=== PATIENT | male | born 1955 | race Caucasian/White ===

== ENCOUNTER 2017-01-03 15:00 | Emergency (ER) ==
[2017-01-03 15:15] VITALS: BP 110/75; TEMP 97.9; BMI 31.4
[2017-01-03 15:29] LABS: BILIRUBIN,URINE Negative (NEGATIVE); KETONES,URINE Negative (NEGATIVE); LEUKOCYTE ESTERASE ,URINE Negative (NEGATIVE); NITRITE,URINE Negative (NEGATIVE); PH,URINE 5.5 (5-9); PROTEIN,URINE Negative (NEGATIVE); URINE, BLOOD Negative (NEGATIVE)
[2017-01-03 15:33] LABS: ADD URINE MICROSCOPIC NO
[2017-01-03 15:34] LABS: BASOPHILS # (AUTO) 0.1 K/uL (0-0.2); BASOPHILS % (AUTO) 0.7 % (0.0-3.0); EOSINOPHILS # (AUTO) 0.4 K/ul (0.0-0.7); EOSINOPHILS % (AUTO) 3.7 % (0.0-7.0); HEMATOCRIT 37.3 % (42.0-52.0); HEMOGLOBIN 13.1 g/dl (14.0-18.0); IMMATURE GRANULOCYTE % (AUTO) 0.7 % (0.0-5.0); LYMPHOCYTES # (AUTO) 1.8 K/uL (0.60-3.4); LYMPHOCYTES % (AUTO) 15.7 (10.0-50.0); MEAN CORPUSCULAR HEMOGLOBIN 28.9 pg (27.0-31.0); MEAN CORPUSCULAR HGB CONC 35.1 (31.8-35.4); MEAN CORPUSCULAR VOLUME 82.3 fl (80.0-94.0); MONOCYTES # (AUTO) 0.6 K/uL (0.4-2.0); MONOCYTES % (AUTO) 5.7 (0-10); NEUTROPHILS # (AUTO) 8.2 K/ul (2.0-6.9); NEUTROPHILS % (AUTO) 73.5; PLATELET COUNT 250 10^3/uL (140-440); RED BLOOD COUNT 4.53 10^6/ul (4.70-6.10); WHITE BLOOD COUNT 11.21 K/ul (4.2-10.2)
--- NOTE | 2017-01-03 15:34 | DI ---
EXAM: Chest two views HISTORY: Cough COMPARISON: None TECHNIQUE: Two views of the chest were performed FINDINGS: The lungs are clear. There is no pleural effusion or pneumothorax. The heart is normal in size. The mediastinal contour is normal. There are no acute abnormalities of the bones. IMPRESSION: No acute cardiopulmonary process.
[2017-01-03 15:53] LABS: ALBUMIN 3.5 g/dL (3.4-5.0); ALBUMIN/GLOBULIN RATIO 1.21; ANION GAP 15.1; BILIRUBIN,TOTAL 0.59 mg/dL (0.00-1.20); BUN/CREATININE RATIO 12.38; CALCIUM 8.7 mg/dL (8.2-10.2); CREATININE 1.13 mg/dL (0.60-1.10); POTASSIUM 4.1 mmol/L (3.5-5.1); TOTAL PROTEIN 6.4 g/dL (5.8-8.1)
--- NOTE | 2017-01-03 16:01 | ED.PDOC ---
General ED Provider: Dr. MARCELLO RING Chief Complaint: Diabetes Stated Complaint: diabetes Time Seen by Physician: 15:00 (has cough, congestion and elevated out pt blood sugar) Mode of Arrival: Walk-In Information Source: Patient Exam Limitations: No limitations Nursing and Triage Documentation Reviewed and Agree: Yes (visiting from out of town seen with jeremiah at all times ) Endocrine Complaint Exam - Diabetic Complication Complaint/Exam Onset/Duration: 2 days Symptoms Are: Still present Timing: Constant Initial Severity: Mild Current Severity: Mild Aggravating: Reports: None Alleviating: Reports: None Associated Signs and Symptoms: Denies: Decreased LOC, Polydipsia, Polyuria, Polyphagia, Weight loss, Abdominal pain, Nausea, Vomiting, Fever, Diaphoresis, Fruity breath Related History: Reports: Similar episode Cardiac Risk Factors: Reports: DM CVA Risk Factors: Reports: DM Serious Bacterial Infection Risk Factors: Reports: None Related Surgical History: Reports: None Acetone on Breath: No Dry Mucous Membranes: No Glascow Coma Scale (see protocol): 15 Meningeal Signs: No Focal Weakness: None Focal Sensory Loss: None Gait: Normal Nystagmus Present: No Gag Reflex Present: No Differential Diagnoses: Pneumonia Review of Systems - Review Of Systems Constitutional: Reports: No symptoms Eyes: Reports: No symptoms Ears, Nose, Mouth, Throat: Reports: No symptoms Respiratory: Reports: Cough Cardiac: Reports: No symptoms GI: Reports: No symptoms : Reports: No symptoms Musculoskeletal: Reports: No symptoms Skin: Reports: No symptoms Neurological: Reports: No symptoms Endocrine: Reports: No symptoms Hematologic/Lymphatic: Reports: No symptoms All Other Systems: Reviewed and Negative Past Medical History - Past Medical History Previously Healthy: No Endocrine: Reports: DM 2 Cardiovascular: Reports: None Respiratory: Reports: None Hematological: Reports: None Gastrointestinal: Reports: None Genitourinary: Reports: None Neuro/Psych: Reports: None Musculoskeletal: Reports: None Cancer: Reports: None - Surgical History General Surgical History: Reports: None - Family History Family History: Reports: None - Social History Smoking Status: Never smoker Hx Substance Use: No Alcohol Screening: None Physical Exam - Physical Exam Appearance: Well-appearing, No pain distress, Well-nourished Eyes: LENKA, EOMI, Conjunctiva clear ENT: Ears normal, Nose normal, Oropharynx normal Respiratory: Airway patent, Breath sounds clear, Breath sounds equal, Respirations nonlabored Cardiovascular: RRR, Pulses normal, No rub, No murmur GI/: Soft, Nontender, No masses, Bowel sounds normal, No Organomegaly Musculoskeletal: Normal strength, ROM intact, No edema, No calf tenderness Skin: Warm, Dry, Normal color Neurological: Sensation intact, Motor intact, Reflexes intact, Cranial nerves intact, Alert, Oriented Psychiatric: Affect appropriate, Mood appropriate Critical Care Note - Critical Care Note Total Time (mins): 0 Course - Course Hematology/Chemistry: 01/03/17 15:30 01/03/17 15:30 Orders, Labs, Meds: Lab Review 01/03/17 01/03/17 15:20 15:30 WBC 11.21 H RBC 4.53 L Hgb 13.1 L Hct 37.3 L MCV 82.3 MCH 28.9 MCHC 35.1 RDW Coeff of Ed 13.1 Plt Count 250 Immature Gran % (Auto) 0.7 Neut % (Auto) 73.5 Lymph % (Auto) 15.7 Benzie % (Auto) 5.7 Eos % (Auto) 3.7 Baso % (Auto) 0.7 Immature Gran # (Auto) 0.1 Neut # 8.2 H Lymph # 1.8 Benzie # 0.6 Eos # 0.4 Baso # 0.1 Sodium 136 Potassium 4.1 Chloride 102 Carbon Dioxide 23 Anion Gap 15.1 BUN 14 Creatinine 1.13 H Estimated GFR (MDRD) 66.00 BUN/Creatinine Ratio 12.38 Glucose 288 H Calcium 8.7 Total Bilirubin 0.59 AST 14 L ALT 21 Alkaline Phosphatase 91 Total Protein 6.4 Albumin 3.5 Globulin 2.9 Albumin/Globulin Ratio 1.21 Urine Color Yellow Urine Clarity Clear Urine pH 5.5 Ur Specific Arthur 1.015 Urine Protein Negative Urine Glucose (UA) 2+ Urine Ketones Negative Urine Blood Negative Urine Nitrite Negative Urine Bilirubin Negative Urine Urobilinogen 0.2 Ur Leukocyte Esterase Negative Orders Category Date Time Status CBC W/ AUTO DIFF Stat LAB 01/03/17 15:30 Completed COMPREHENSIVE METABOLIC PANEL Stat LAB 01/03/17 15:30 Completed MOLECULAR GROUP A STREP Stat LAB 01/03/17 15:20 Results STREP SCREEN Stat LAB 01/03/17 15:20 Results URINALYSIS C & S IF INDICATED Stat LAB 01/03/17 15:20 Completed CHEST, 2 VIEWS PA & LAT Stat RADS 01/03/17 15:15 Completed Vital Signs: Temp Pulse Resp BP Pulse Ox 01/03/17 15:01 97.9 F 77 20 110/75 96 Departure - Departure Time of Disposition: 16:02 Disposition: HOME SELF-CARE Discharge Problem: Upper respiratory infection Qualifiers: URI type: unspecified URI Qualifier Code: (J06.9) Acute upper respiratory infection, unspecified Anemia Qualifiers: Iron deficiency anemia type: unspecified iron deficiency Instructions: Upper Respiratory Infection (ED) Condition: Fair Pt referred to PMD for follow-up: No Additional Instructions: you diabetes is not well controlled see your doctor rosalina. you are also anemic since your colonscopy was about 10 years ago you will need a colonscopy discuss with you MD Please call your Family Physician as soon as possible to schedule a follow-up appointment. Allergies/Adverse Reactions: Allergies codeine Adverse Reaction (Verified 01/03/17 15:05) Home Medications: Ambulatory Orders Amlodipine Besylate 20 mg PO DAILY 01/03/17 Aspirin 81 mg PO DAILY 01/03/17 Carvedilol 12.5 mg PO BID 01/03/17 Citalopram Hydrobromide [Citalopram HBr] 20 mg PO DAILY 01/03/17 Insulin Detemir [Levemir] 150 unit SQ BEDTIME 01/03/17 Lisinopril [Zestril] 40 mg PO DAILY 01/03/17 Lovastatin 10 mg PO BEDTIME 01/03/17 Metformin HCl 1,000 mg PO BID 01/03/17
== END 2017-01-03 16:12 | disposition home or self-care (01) ==
LOC: ED 15:00
DX: J06.9 Acute upper respiratory infection, unspecified (principal); D50.9 Iron deficiency anemia, unspecified; E11.9 Type 2 diabetes mellitus without complications; Z79.899 Other long term (current) drug therapy
CPT/HCPCS: 36415; 80053; 81001; 85025; 87651; 87880; 99283